=== PATIENT | male | born 1940 | race Caucasian/White ===

== ENCOUNTER 2018-02-18 11:24 | Observation (INO) ==
--- NOTE | 2018-02-18 11:43 | Emergency Department Note ---
ED Disposition Clinical Impression: Troponin level elevated, Bradycardia, Vasovagal near-syncope, Hypokalemia Disposition: Admitted as Observation Condition on Discharge: Good Additional Instructions: consult d/w Dr Emery ([facility]), admit d/w Dr Barlow - Critical Care Critical Care Time: No Attestation: On , the high probability of a clinically significant, sudden or life threatening deterioration of the following system(s) required my full and direct attention, intervention and personal management. The time I documented below is in addition to time spent performing reported procedures but includes the following listed in this critical care notation. Medical Decision Making - Medical Records Medical records reviewed: Yes: I reviewed the patient's medical records. - Albert Inquiry Pt receiving controlled substance: No Vital Signs: 02/18/18 12:02 02/18/18 12:05 Temperature 97.8 F Temperature Source Oral Pulse Rate [Left Radial] 51 L 78 Respiratory Rate 16 Blood Pressure [Right Arm] 126/90 98/52 L Blood Pressure Mean [Right Arm] 102 67 Blood Pressure Source [Right Arm] Automatic Cuff Automatic Cuff Blood Pressure Position [Right Arm] Supine Standing 02 Sat by Pulse Oximetry 97 Oxygen Delivery Method Room Air - Lab Data Lab results reviewed: Yes: I reviewed the patient's lab results. Lab Results 02/18/18 12:30: WBC 9.1, RBC 3.97 L, Hgb 11.7 L, Hct 37.4 L, MCV 94.0, MCH 29.5, MCHC 31.4 L, RDW 15.2, Plt Count 199, MPV 8.2, Neut % (Auto) 77.3, Lymph % (Auto) 16.2, Ralls % (Auto) 6.0, Eos % (Auto) 0.3, Baso % (Auto) 0.2, Neut # (Auto) 7.1, Lymph # (Auto) 1.5, Ralls # (Auto) 0.6, Eos # (Auto) 0.0, Baso # (Auto) 0.0 02/18/18 12:30: Sodium 138, Potassium 3.0 L, Chloride 103, Carbon Dioxide 26, Anion Gap 12.0, BUN 25 H, Creatinine 6.87 H, Estimated Creat Clear 8, Estimated GFR 8 L*, Est GFR ( Amer) 9 L*, Glucose 113 H, Calcium 5.9 L, Total Bili keys 0.2, AST 53 H, ALT 38, Alkaline Phosphatase 109, Troponin I 0.12 H, Total Protein 4.6 L, Albumin 1.2 L, Globulin 3.4 H, Albumin/Globulin Ratio 0.4 L 02/18/18 12:30: Lactate 1.2 02/18/18 12:30: Magnesium 1.3 L Result diagrams: 02/18/18 12:30 02/18/18 12:30 Orders (Tests/Meds): ED MEDICATIONS Generic Name Dose Route Start Last Admin Trade Name Freq PRN Reason Stop Dose Admin Acetaminophen 650 mg 02/18/18 14:21 Acetaminophen 325mg Tab PO 03/20/18 14:20 Q4HP PRN As Needed for Fever or Pain Sodium Chloride 500 mls @ 500 mls/hr 02/18/18 11:45 02/18/18 14:06 Sod Chlor 0.9% 500ml Bag IV 03/20/18 11:44 500 mls/hr .Q1H BRIAN Administration Discontinued Medications Generic Name Dose Route Start Last Admin Trade Name Freq PRN Reason Stop Dose Admin Potassium Chloride 20 meq 02/18/18 13:49 02/18/18 14:07 Klor-Con 20meq Tablet PO 02/18/18 13:50 20 meq ONCE ONE Administration ORDERS Category Date Time Status Troponin I Q3H Lab 02/18/18 17:30 Ordered Troponin I Q3H Lab 02/18/18 20:30 Ordered Urinalysis and Microscopic Stat Lab 02/18/18 11:39 Ordered 12-lead EKG Request [ECG Request by /Kristen] Stat Y 02/18/18 11:35 Ordered - ECG Data Tracing #1 I reviewed this ECG and interpreted as documented below: Arrhythmias present: sinus kristin, other (no stemi) General Adult HPI - General Stated complaint: Dizzy; passing out Time Seen by Provider: 02/18/18 11:40 - History of Present Illness HPI narrative: mild to mod dizzy today, no loc, no pain, no injury, no fever, no visual disturbance - Related Data Home Medications Medication Instructions Recorded Confirmed Finasteride [Proscar 5mg Tablet] 1 tab PO DAILY 01/04/18 02/18/18 Levothyroxine Sodium 1 tab PO DAILY 01/04/18 02/18/18 [Levothyroxine 50mcg (0.05mg) Tab] Midodrine HCl 10 mg PO TID 01/04/18 02/18/18 Tamsulosin HCl [Flomax 0.4mg 1 pack PO DAILY 01/04/18 02/18/18 capsule] Aspirin [Aspir 81] 81 mg PO DAILY 02/13/18 02/18/18 Atorvastatin Calcium [Lipitor 80mg 80 mg PO DAILY 02/13/18 02/18/18 Tablet] Fludrocortisone Acetate [Florinef 0.1 mg PO DAILY 02/13/18 02/18/18 0.1mg tablet] Loperamide HCl [Imodium 2 mg 2 mg PO DAILY PRN 02/13/18 02/18/18 capsule] Potassium Chloride [Klor-con 20 20 meq PO BID 02/13/18 02/18/18 mEq tablet] Allergies Allergy/AdvReac Type Severity Reaction Status Date / Time No Known Allergies Allergy Verified 01/04/18 16:[address] [facility] History I have reviewed the patient's past medical history: Yes Medical History: Reports:: Renal Disease (Peritoneal Dialysis) Denies:: Diabetes Mellitus Type 2 - Social History Smoking Status: Current every day smoker Tobacco Type: cigarettes Alcohol Intake: never ROS Obtained: Yes Systems reviewed as appropriate & no additional complaints - Constitutional Constitutional: Denies fever(s) - Eyes Eyes: Denies change in vision - ENT Ears, Nose, Mouth, and Throat: Reports dizziness - Cardiovascular Cardiovascular: Denies chest pain - Respiratory Respiratory: No dyspnea - Gastrointestinal Gastrointestingal: Denies: abdominal pain - Musculoskeletal Musculoskeletal: Denies back pain - Integumentary/Breasts Skin/Breast: Denies rash - Neurologic Neurologic: Reports dizziness, Denies focal weakness Physical Exam - General General appearance: alert, in no apparent distress - Head Head exam: atraumatic - Eye Eye exam: Present: PERRL, EOMI - ENT ENT exam: Present: normal oropharynx, mucous membranes moist - Neck Neck exam: Present: normal inspection - Chest Chest inspection: Present: normal inspection - Respiratory Respiratory exam: Present: normal lung sounds bilaterally - Cardiovascular Cardiovascular exam: Present: regular rate, normal rhythm - Abdominal Exam Abdominal exam: Present: soft. Absent: tenderness - Extremities Exam Extremities exam: Absent: tenderness - Neurological Exam Neurological exam: Present: alert, oriented X3, other (cn 3 to 10 grossly intact) - Psychiatric Psychiatric exam: Present: normal affect, normal mood - Skin Skin exam: Present: warm, dry
[2018-02-18 12:41] LABS: Basophils % 0.2 % (0.1-2.0); Eosinophils % 0.3 % (0.1-12.0); Hematocrit 37.4 % (42.0-52.0); Hemoglobin 11.7 g/dL (14.1-18.0); Lymphocytes # 1.5 K/mm3 (0.7-4.5); Lymphocytes % 16.2 % (10-50); Mean Corpuscular HGB Conc 31.4 g/dL (31.8-35.4); Mean Corpuscular Hemoglobin 29.5 pg (27.0-31.2); Mean Platelet Volume 8.2 fl (7.4-10.4); Monocytes # 0.6 K/mm3 (0.1-1.0); Neutrophils # 7.1 K/mm3 (1.8-7.8); Neutrophils % 77.3 % (37.0-80.0); Platelet Count 199 K/mm3 (142-424); Red Blood Count 3.97 M/mm3 (4.60-6.20); Red Cell Distribution Width 15.2 % (11.5-17.5); White Blood Count 9.1 K/mm3 (4.8-10.8)
[2018-02-18 12:56] LABS: Albumin Level 1.2 gm/dL (3.4-5.0); Albumin/Globulin Ratio 0.4 (1.1-1.8); Bilirubin,Total 0.2 mg/dL (0.2-1.0); Calcium 5.9 mg/dL (8.5-10.1); Globulin 3.4 gm/dl (1.3-3.2); Total Protein,Serum 4.6 gm/dL (6.4-8.2)
--- NOTE | 2018-02-18 14:20 | Consult Report ---
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 Carotid U/S, 01/19/18, [place], [place] showed 0-49% ICA stenosis bilaterally. Echo, 01/19/2018, [place], [place] showed LVEF 77% with RVSP of 32 mm Hg, Mild MR and Aortic valve calcification noted. Echo, 11/04/17, [place], [place], showed LVEF of 65-70% with sigmoid shaped septum, Grade II diastolic dysfunction, mild to moderate MAC with mild MR, mild aortic stenosis with peak velocity of 2.9 m/s, a mean gradient of 17 mm Hg and ELIZABETH by Continuity Equation of 1.5 cm(cm) and mild AR, RVSP 49 mm Hg EKG showed A. fib with RVR at 104 bpm. Original Note: History of Present Illness Consult date: 02/18/18 Requesting physician: Figueroa Barlow Consult reason: hypotension Chief complaint: Syncope, Hypotension, Bradycardia Additional Medical History:: 1. History of hypertension, now with episodes of hypotension for which he takes Midodrine 2. End-stage renal disease, on peritoneal dialysis since July 2017 3. Continued tobacco use, now down to 1/2 pack/day. Patient has smoked 50-60 years. 4. History of TIAs recently without residual deficits 5. History of recurrent aspiration pneumonia with hospitalization 1 month ago in both [place] in [place] and then in [facility] in [place] 6. Hyperlipidemia History of present illness: 77-year-old white male with history as noted above presented to [facility] due to complaint of dizziness and passing out. Symptoms seem to have started about the time of his dialysis starting in July of this year. Over the last couple of weeks the dizziness and passing out episodes have become more frequent. Patient relates that he has decided to switch from nephrology care at [place] in [place] to nephrology care at [facility] in [place], [place] and reportedly there is a change in his dialysate to start in the near future. Patient relates similar symptoms last week for which she received IV fluids and was discharged from the emergency department. His son relates that the patient has a cardiac murmur with a recent echocardiogram but results are unknown. Patient denies any chest pain, pressure or tightness. Patient relates that he is taking a medication to keep his heart rate and blood pressure up to try to prevent the dizziness and syncopal episodes. Initial troponin is normal. Cardiology consulted for evaluation recommendations. EKG shows marked sinus bradycardia at 49 bpm with PAC. [facility] History Medical History: Reports:: Renal Disease (Peritoneal Dialysis) Denies:: Diabetes Mellitus Type 2 - *Social History Smoking Status: Current every day smoker Tobacco Type: cigarettes Alcohol Intake: never - Psychiatric History Expresses thoughts of harming self/others: None Suicide Plan Description: No Plan Meds Home Medications Medication Instructions Recorded Confirmed Type Finasteride [Proscar 5mg Tablet] 1 tab PO DAILY 01/04/18 02/18/18 History Levothyroxine Sodium 1 tab PO DAILY 01/04/18 02/18/18 History [Levothyroxine 50mcg (0.05mg) Tab] Midodrine HCl 10 mg PO TID 01/04/18 02/18/18 History Tamsulosin HCl [Flomax 0.4mg 1 pack PO DAILY 01/04/18 02/18/18 History capsule] Aspirin [Aspir 81] 81 mg PO DAILY 02/13/18 02/18/18 History Atorvastatin Calcium [Lipitor 80mg 80 mg PO DAILY 02/13/18 02/18/18 History Tablet] Fludrocortisone Acetate [Florinef 0.1 mg PO DAILY 02/13/18 02/18/18 History 0.1mg tablet] Loperamide HCl [Imodium 2 mg 2 mg PO DAILY PRN 02/13/18 02/18/18 History capsule] Potassium Chloride [Klor-con 20 20 meq PO BID 02/13/18 02/18/18 History mEq tablet] Allergies Allergy/AdvReac Type Severity Reaction Status Date / Time No Known Allergies Allergy Verified 01/04/18 16:37 Review of Systems - *Cardiovascular Reports shortness of breath with activity, Denies chest pain, Denies leg swelling - *Respiratory Reports cough, Denies shortness of breath - *Gastrointestinal Denies abdominal pain, Denies loose stools - *Genitourinary Denies blood in semen, Denies blood in urine - *Musculoskeletal Denies back pain - *Neurologic Reports dizziness, Denies localized weakness Exam Vital signs and Labs for Last 24 Hours: Temp Pulse Resp BP Pulse Ox 97.8 F 78 16 98/52 L 97 02/18/18 12:02 02/18/18 12:05 02/18/18 12:02 02/18/18 12:05 02/18/18 12:02 Laboratory Results - last 24 hr 02/18/18 12:30: WBC 9.1, RBC 3.97 L, Hgb 11.7 L, Hct 37.4 L, MCV 94.0, MCH 29.5, MCHC 31.4 L, RDW 15.2, Plt Count 199, MPV 8.2, Neut % (Auto) 77.3, Lymph % (Auto) 16.2, Walker % (Auto) 6.0, Eos % (Auto) 0.3, Baso % (Auto) 0.2, Neut # (Auto) 7.1, Lymph # (Auto) 1.5, Walker # (Auto) 0.6, Eos # (Auto) 0.0, Baso # (Auto) 0.0 02/18/18 12:30: Sodium 138, Potassium 3.0 L, Chloride 103, Carbon Dioxide 26, Anion Gap 12.0, BUN 25 H, Creatinine 6.87 H, Estimated Creat Clear 8, Estimated GFR 8 L*, Est GFR ( Amer) 9 L*, Glucose 113 H, Calcium 5.9 L, Total Bilirubin 0.2, AST 53 H, ALT 38, Alkaline Phosphatase 109, Troponin I 0.12 H, Total Protein 4.6 L, Albumin 1.2 L, Globulin 3.4 H, Albumin/Globulin Ratio 0.4 L 02/18/18 12:30: Lactate 1.2 02/18/18 12:30: Magnesium 1.3 L I & O for Last 24 hours: Intake & Output 02/16/18 02/17/18 02/18/18 02/19/18 11:59 11:59 11:59 11:59 Weight 137 lb - *Routine Neck Exam Present: supple, carotid bruit. Absent: JVD - *Routine Respiratory Exam Present: decreased breath sounds, diminished air movement. Absent: accessory muscle use, rales, rhonchi, wheezes - *Routine Cardiovascular Exam Present: RRR, murmur. Absent: gallop, rubs - *Routine Abdominal Exam Present: soft. Absent: tenderness, distended, guarding - *Routine Extremities Exam Absent: edema, calf tenderness - *Routine Neurological Exam Present: alert, oriented X3, moving all extremities Assessment and Plan (1) Dizziness Current visit: No Status: Acute Category: Medical Code(s): R42 - Dizziness and giddiness (2) End stage chronic kidney disease Current visit: No Status: Acute Category: Medical Code(s): N18.6 - End stage renal disease (3) Heart murmur on physical examination Current visit: Yes Status: Acute Category: Medical Code(s): R01.1 - Cardiac murmur, unspecified (4) Orthostatic hypotension Current visit: No Status: Acute Category: Medical Code(s): I95.1 - Orthostatic hypotension (5) Syncope due to orthostatic hypotension Current visit: No Status: Acute Category: Medical Code(s): I95.1 - Orthostatic hypotension (6) History of recurrent TIAs Current visit: Yes Status: Acute Category: Medical Code(s): Z86.73 - Personal history of transient ischemic attack (TIA), and cerebral infarction without residual deficits (7) History of aspiration pneumonia Current visit: Yes Status: Acute Category: Medical Code(s): Z87.01 - Personal history of pneumonia (recurrent) (8) Tobacco use disorder, continuous Current visit: Yes Status: Acute Category: Medical Code(s): F17.209 - Nicotine dependence, unspecified, with unspecified nicotine-induced disorders (9) 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 We will try to obtain records from both [facility] in [place] and [facility] in [place], [place] for review prior to repeating echocardiogram. 2. Patient is receiving IV fluids and with p.o. potassium. 3. Recommend telemetry to observe for continued bradycardia and possible need for permanent pacemaker implantation.
--- NOTE | 2018-02-18 14:52 | Pharmacy Consult Notes ---
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
--- NOTE | 2018-02-18 15:34 | History & Physical Report ---
*Admission Date: 02/18/18 *Chief complaint: weakness, ? dehydration *History of present illness: 77-year-old white male with history as noted above presented to the [facility] emergency department due to complaint of dizziness and passing out. Symptoms seem to have started about the time of his dialysis starting in July of this year. Over the last couple of weeks the dizziness and passing out episodes have become more frequent. Patient relates that he has decided to switch from nephrology care at [place] in [facility] to nephrology care at [facility] in [place], [place] and reportedly there is a change in his dialysate to start in the near future. Patient relates similar symptoms last week for which she received IV fluids and was discharged from the emergency department. His son relates that the patient has a cardiac murmur with a recent echocardiogram but results are unknown. Patient denies any chest pain, pressure or tightness. Patient relates that he is taking a medication to keep his heart rate and blood pressure up to try to prevent the dizziness and syncopal episodes. Initial troponin is elevated, but at baseline from prior. Cardiology consulted by ER MD for evaluation recommendations. EKG shows marked sinus bradycardia at 49 bpm with PAC. is most concerened about possible dehydration. 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 - *Social History Smoking Status: Current every day smoker Tobacco Type: cigarettes Alcohol Intake: never - Psychiatric History Expresses thoughts of harming self/others: None Suicide Plan Description: No Plan *Family Hx:: Non-contributory Review of Systems - Review of Systems Review of systems:: pertinent systems reviewed and negative unless documented below - Constitutional Reports body ache(s), Reports fatigue, Denies fever(s), Denies headache(s) - Eyes Reports blind spots, Reports blurry vision - ENT Reports poor balance, Reports dizziness, Denies abnormal hearing - *Cardiovascular Reports leg swelling, Denies chest pain, Denies chest pain at rest, Denies leg pain with activity, Denies shortness of breath - *Respiratory Reports shortness of breath with activity, Denies change in phlegm color, Denies chest congestion, Denies shortness of breath, Denies excessive phlegm production - *Gastrointestinal Denies abdominal pain, Denies belching, Denies bloating, Denies change in bowel habits - *Genitourinary Reports difficulty urinating - *Musculoskeletal Reports abnormal walking, Reports deformity, Denies joint pain, Denies joint swelling - *Neurologic Reports dizziness, Denies localized weakness Meds Home Medications Medication Instructions Recorded Confirmed Type Finasteride [Proscar 5mg Tablet] 5 mg PO DAILY 01/04/18 02/18/18 History Levothyroxine Sodium 50 mcg PO DAILY 01/04/18 02/18/18 History [Levothyroxine 50mcg (0.05mg) Tab] Tamsulosin HCl [Flomax 0.4mg 0.8 mg PO DAILY 01/04/18 02/18/18 History capsule] Aspirin [Aspir 81] 81 mg PO DAILY 02/13/18 02/18/18 History Atorvastatin Calcium [Lipitor 80mg 80 mg PO DAILY 02/13/18 02/18/18 History Tablet] Fludrocortisone Acetate [Florinef 0.1 mg PO TID 02/13/18 02/18/18 History 0.1mg tablet] Loperamide HCl [Imodium 2 mg 2 mg PO DAILY PRN 02/13/18 02/18/18 History capsule] Potassium Chloride [Klor-con 20 40 meq PO BID 02/13/18 02/18/18 History mEq tablet] Midodrine HCl 20 mg PO TID 02/18/18 02/18/18 History Omeprazole [Omeprazole 20mg 20 mg PO DAILY 02/18/18 02/18/18 History Capsule] Sodium Chloride 1 gm PO BID 02/18/18 02/18/18 History Allergies Allergy/AdvReac Type Severity Reaction Status Date / Time No Known Allergies Allergy Verified 01/04/18 16:37 Exam Vital signs and Labs for Last 24 Hours: Temp Pulse Resp BP Pulse Ox 98 F 60 20 126/62 97 02/18/18 15:06 02/18/18 15:06 02/18/18 15:06 02/18/18 15:06 02/18/18 15:04 Laboratory Results - last 24 hr 02/18/18 12:30: WBC 9.1, RBC 3.97 L, Hgb 11.7 L, Hct 37.4 L, MCV 94.0, MCH 29.5, MCHC 31.4 L, RDW 15.2, Plt Count 199, MPV 8.2, Neut % (Auto) 77.3, Lymph % (Auto) 16.2, [place] % (Auto) 6.0, Eos % (Auto) 0.3, Baso % (Auto) 0.2, Neut # (Auto) 7.1, Lymph # (Auto) 1.5, [place] # (Auto) 0.6, Eos # (Auto) 0.0, Baso # (Auto) 0.0 02/18/18 12:30: Sodium 138, Potassium 3.0 L, Chloride 103, Carbon Dioxide 26, Anion Gap 12.0, BUN 25 H, Creatinine 6.87 H, Estimated Creat Clear 8, Estimated GFR 8 L*, Est GFR ( Amer) 9 L*, Glucose 113 H, Calcium 5.9 L, Total Bilirubin 0.2, AST 53 H, ALT 38, Alkaline Phosphatase 109, Troponin I 0.12 H, Total Protein 4.6 L, Albumin 1.2 L, Globulin 3.4 H, Albumin/Globulin Ratio 0.4 L 02/18/18 12:30: Lactate 1.2 02/18/18 12:30: Magnesium 1.3 L I & O for Last 24 hours: Intake & Output 02/16/18 02/17/18 02/18/18 02/19/18 11:59 11:59 11:59 11:59 Weight 137 lb - Constitutional no acute distress, cooperative - *Routine HEENT Exam Head: Present: normocephalic, atraumatic Eye: Present: EOMI, PERRL. Absent: scleral injection ENT: Present: mucous membranes dry, oropharynx clear - *Routine Neck Exam Present: supple. Absent: JVD, lymphadenopathy - *Routine Respiratory Exam Present: rhonchi (in both bases). Absent: accessory muscle use, decreased breath sounds - *Routine Cardiovascular Exam Present: RRR, Normal S1, murmur, bradycardia - *Routine Abdominal Exam Present: soft Comments: Dialysis catheter noted. Soft abdomen. Assessment and Plan (1) Dizziness Current visit: No Status: Acute Category: Medical Code(s): R42 - Dizziness and giddiness (2) End stage chronic kidney disease Current visit: No Status: Acute Category: Medical Code(s): N18.6 - End stage renal disease (3) Heart murmur on physical examination Current visit: Yes Status: Acute Category: Medical Code(s): R01.1 - Cardiac murmur, unspecified (4) Orthostatic hypotension Current visit: No Status: Acute Category: Medical Code(s): I95.1 - Orthostatic hypotension (5) Syncope due to orthostatic hypotension Current visit: No Status: Acute Category: Medical Code(s): I95.1 - Orthostatic hypotension (6) History of recurrent TIAs Current visit: Yes Status: Acute Category: Medical Code(s): Z86.73 - Personal history of transient ischemic attack (TIA), and cerebral infarction without residual deficits (7) History of aspiration pneumonia Current visit: Yes Status: Acute Category: Medical Code(s): Z87.01 - Personal history of pneumonia (recurrent) (8) Tobacco use disorder, continuous Current visit: Yes Status: Acute Category: Medical Code(s): F17.209 - Nicotine dependence, unspecified, with unspecified nicotine-induced disorders (9) 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 F/u closely
[2018-02-19 04:18] LABS: Appearance,Urine CLEAR (Clear); Bilirubin,Urine Negative (Negative); Blood, Urine 2+ (Negative); Color,Urine YELLOW (Yellow); Glucose,Urine (UA) Negative (Negative); Ketones,Urine Negative (Negative); Leukocyte Esterase,Urine 2+ (Negative); Microscopic, Urine URINE MICROSCOPIC (MICROSCOPIC); PH,Urine 5.5 (5.0-8.5); Protein,Urine 1+ (Negative); Specific Gravity, Urine 1.025 (1.005-1.030); Urobilinogen,Urine 0.2 EU/dl (0.2)
[2018-02-19 04:25] LABS: Bacteria,Urine 2+ /lpf; WBC,Urine 20-50 #/hpf (0-3)
[2018-02-19 05:59] LABS: Basophils % 0.2 % (0.1-2.0); Eosinophils % 0.4 % (0.1-12.0); Hematocrit 33.8 % (42.0-52.0); Lymphocytes # 1.6 K/mm3 (0.7-4.5); Lymphocytes % 20.2 % (10-50); Mean Corpuscular HGB Conc 30.6 g/dL (31.8-35.4); Mean Corpuscular Hemoglobin 29.2 pg (27.0-31.2); Mean Corpuscular Volume 95.2 fl (80-94); Mean Platelet Volume 7.9 fl (7.4-10.4); Monocytes # 0.5 K/mm3 (0.1-1.0); Monocytes % 6.7 % (1.7-9.3); Neutrophils # 5.6 K/mm3 (1.8-7.8); Neutrophils % 72.5 % (37.0-80.0); Platelet Count 151 K/mm3 (142-424); Red Blood Count 3.55 M/mm3 (4.60-6.20); Red Cell Distribution Width 15.3 % (11.5-17.5); White Blood Count 7.7 K/mm3 (4.8-10.8)
[2018-02-19 06:09] LABS: Anion Gap 11.4 mEq/L (5-15); Hemoglobin 10.5 g/dL (14.1-18.0); Potassium 3.4 mmoL/L (3.5-5.1)
[2018-02-19 06:11] LABS: Calcium 5.8 mg/dL (8.5-10.1)
[2018-02-19 09:11] LABS: Free Thyroxine Index 1.2 ug/dL (5.93-13.13); T4 (Thyroxine) 3.1 ug/dl (4.7-13.3); Thyroid Stimulating Hormone 6.69 uIU/ml (0.358-3.740)
--- NOTE | 2018-02-19 11:28 | Progress Note ---
Subjective Date: 02/19/18 Time: 11:25 Principal diagnosis: Hypotension, bradycardia Interval history: 77-year-old white male in bed in no acute distress. is present in the room. Patient states he feels much better than when he came in yesterday. He ate cheeseburger and fries last evening and did not have dialysis last night. Exam Vital signs and Labs for Last 24 Hours: Temp Pulse Resp BP Pulse Ox 97.8 F 64 17 116/73 99 02/19/18 11:23 02/19/18 11:23 02/19/18 11:23 02/19/18 11:23 02/19/18 11:23 Laboratory Results - last 24 hr 02/18/18 12:30: WBC 9.1, RBC 3.97 L, Hgb 11.7 L, Hct 37.4 L, MCV 94.0, MCH 29.5, MCHC 31.4 L, RDW 15.2, Plt Count 199, MPV 8.2, Neut % (Auto) 77.3, Lymph % (Auto) 16.2, [place] % (Auto) 6.0, Eos % (Auto) 0.3, Baso % (Auto) 0.2, Neut # (Auto) 7.1, Lymph # (Auto) 1.5, [place] # (Auto) 0.6, Eos # (Auto) 0.0, Baso # (Auto) 0.0 02/18/18 12:30: Sodium 138, Potassium 3.0 L, Chloride 103, Carbon Dioxide 26, Anion Gap 12.0, BUN 25 H, Creatinine 6.87 H, Estimated Creat Clear 8, Estimated GFR 8 L*, Est GFR ( Amer) 9 L*, Glucose 113 H, Calcium 5.9 L, Total Bilirubin 0.2, AST 53 H, ALT 38, Alkaline Phosphatase 109, Troponin I 0.12 H, Total Protein 4.6 L, Albumin 1.2 L, Globulin 3.4 H, Albumin/Globulin Ratio 0.4 L 02/18/18 12:30: Lactate 1.2 02/18/18 12:30: Magnesium 1.3 L 02/18/18 17:50: Troponin I 0.12 H 02/18/18 21:01: Troponin I 0.12 H 02/19/18 04:12: Urine Color Yellow, Urine Appearance Clear, Urine pH 5.5, Ur Specific [place] 1.025, Urine Protein 1+, Urine Glucose (UA) Negative, Urine Ketones Negative, Urine Blood 2+, Urine Nitrate Negative, Urine Bilirubin Negative, Urine Urobilinogen 0.2, Ur Leukocyte Esterase 2+ A, Urine RBC 5-10, Urine WBC 20-50, Ur Squamous Epith Cells 3-5, Urine Bacteria 2+ 02/19/18 05:16: WBC 7.7, RBC 3.55 L, Hgb 10.5 L D, Hct 33.8 L, MCV 95.2 H, MCH 29.2, MCHC 30.6 L, RDW 15.3, Plt Count 151, MPV 7.9, Neut % (Auto) 72.5, Lymph % (Auto) 20.2, [place] % (Auto) 6.7, Eos % (Auto) 0.4, Baso % (Auto) 0.2, Neut # (Auto) 5.6, Lymph # (Auto) 1.6, [place] # (Auto) 0.5, Eos # (Auto) 0.0, Baso # (Auto) 0.0 02/19/18 05:16: Sodium 140, Potassium 3.4 L, Chloride 107, Carbon Dioxide 25, Anion Gap 11.4, BUN 27 H, Creatinine 7.14 H, Estimated Creat Clear 8, Estimated GFR 7 L*, Est GFR ( Amer) 9 L*, Glucose 106, Calcium 5.8 L 02/19/18 05:16: Magnesium 1.6 D 02/19/18 05:16: TSH 6.69 H, Free T4 Index 1.2 L, Thyroxine (T4) 3.1 L, T3 Uptake 40 H I & O for Last 24 hours: Intake & Output 02/16/18 02/17/18 02/18/18 02/19/18 11:59 11:59 11:59 11:59 Intake Total 1080 / 1080 Output Total 300 / 300 Balance 780 / 780 Weight 142 lb - *Routine Neck Exam Present: supple. Absent: JVD, carotid bruit - *Routine Respiratory Exam Present: CTA bilaterally. Absent: accessory muscle use, rales, rhonchi, wheezes - *Routine Cardiovascular Exam Present: RRR. Absent: murmur, gallop, rubs - *Routine Abdominal Exam Present: soft. Absent: tenderness, distended, guarding Comments: Peritoneal dialysis catheter noted in the abdomen. - *Routine Extremities Exam Absent: edema, calf tenderness - *Routine Neurological Exam Present: alert, oriented X3, moving all extremities Progress Note: A&P (1) Dizziness Status: Acute Current Visit: No (2) End stage chronic kidney disease Status: Acute Current Visit: No (3) Heart murmur on physical examination Status: Acute Current Visit: Yes (4) Orthostatic hypotension Status: Acute Current Visit: No (5) Syncope due to orthostatic hypotension Status: Acute Current Visit: No (6) History of recurrent TIAs Status: Acute Current Visit: Yes (7) History of aspiration pneumonia Status: Acute Current Visit: Yes (8) Tobacco use disorder, continuous Status: Acute Current Visit: Yes (9) Anemia due to end stage renal disease Status: Acute Current Visit: Yes (10) Hypomagnesemia Status: Acute Current Visit: Yes (11) Hypokalemia Status: Acute Current Visit: Yes Assessment and Plan for All Diagnoses:: Patient's dizziness and near syncope likely related to orthostatic hypotension from peritoneal dialysis. With placement of fluids and increase in salt intake symptoms have resolved patient does feel better. Telemetry has revealed sinus rhythm in the 50s and 60s overnight with no further marked bradycardia and no episodes of atrial fibrillation. Would not recommend permanent pacemaker insertion at this time. Discussion with Dr. Maya this morning, he is planning to try to get patient into nephrology for further evaluation this week. C ontinue replace potassium and magnesium as indicated. Patient's elevated troponin is likely related to poor clearing from renal status. Thyroid functions show evidence of hypothyroidism, will defer to Francesco for further treatment. No further cardiac workup at this time, we will see as needed.
--- NOTE | 2018-02-19 15:06 | Discharge Summary ---
General - General Admission date:: 02/18/18 Discharge date: 02/19/18 HPI HPI: 77-year-old white male with history as noted above presented to the [facility] emergency department due to complaint of dizziness and passing out. Symptoms seem to have started about the time of his dialysis starting in July of this year. Over the last couple of weeks the dizziness and passing out episodes have become more frequent. Patient relates that he has decided to switch from nephrology care at [facility] in [facility] to nephrology care at [facility] in [place], [place] and reportedly there is a change in his dialysate to start in the near future. Patient relates similar symptoms last week for which she received IV fluids and was discharged from the emergency department. His son relates that the patient has a cardiac murmur with a recent echocardiogram but results are unknown. Patient denies any chest pain, pressure or tightness. Patient relates that he is taking a medication to keep his heart rate and blood pressure up to try to prevent the dizziness and syncopal episodes. Initial troponin is elevated, but at baseline from prior. Cardiology consulted by ER MD for evaluation recommendations. EKG shows marked sinus bradycardia at 49 bpm with PAC. is most concerened about possible dehydration. Hospital Course Hospital Course: Mr. Parrish was admitted to Medicine for management of his hypotension and presyncope. Initially suspected to be due to cardiac etiology due to elevated troponins and bradycardia. Cards was consulted and assessed as follows: "Patient's dizziness and near syncope likely related to orthostatic hypotension from peritoneal dialysis. With placement of fluids and increase in salt intake symptoms have resolved patient does feel better. Telemetry has revealed sinus rhythm in the 50s and 60s overnight with no further marked bradycardia and no episodes of atrial fibrillation. Would not recommend permanent pacemaker insertion at this time. Discussion with Dr. Maya this morning, he is planning to try to get patient into nephrology for further evaluation this week. Continue replace potassium and magnesium as indicated. Patient's elevated troponin is likely related to poor clearing from renal status. No further cardiac workup at this time, we will see as needed." Review of Hx established the followin. History of hypertension, now with episodes of hypotension for which he takes Midodrine 2. End-stage renal disease, on peritoneal dialysis since July 2017 3. Continued tobacco use, now down to 1/2 pack/day. Patient has smoked 50-60 years. 4. History of TIAs recently without residual deficits 5. History of recurrent aspiration pneumonia with hospitalization 1 month ago in both [facility] in [facility] and then in [facility] in [place] 6. 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 Carotid U/S, 01/19/18, [place], [place] showed 0-49% ICA stenosis bilaterally. Echo, 01/19/2018, [place], [place] showed LVEF 77% with RVSP of 32 mm Hg, Mild MR and Aortic valve calcification noted. Echo, 11/04/17, [place], [place], showed LVEF of 65-70% with sigmoid shaped septum, Grade II diastolic dysfunction, mild to moderate MAC with mild MR, mild aortic stenosis with peak velocity of 2.9 m/s, a mean gradient of 17 mm Hg and ELIZABETH by Continuity Equation of 1.5 cm(cm) and mild AR, RVSP 49 mm Hg EKG showed A. fib with RVR at 104 bpm. Determination was made that patient's issued were from dialysis causing fluid, electrolyte imbalances. Due to no Nephrology service at [facility] and inability to provide PD services, patient needs to be transferred to a more capable facility. Family wishes to be transferred to as this is where their new vehicle and equipment cleaner is located. Contacted Hospitalist underground conduit installer and they accepted for transfer pending bed opening. Will continue to manage fluid and electrolyte imbalances as best as possible while at [facility]. Objective Vital signs: Temp Pulse Resp BP Pulse Ox 97.8 F 60 17 116/73 99 02/19/18 11:23 02/19/18 12:00 02/19/18 11:23 02/19/18 11:23 02/19/18 11:23 Narrative: - *Routine Neck Exam Present: supple. Absent: JVD, carotid bruit - *Routine Respiratory Exam Present: CTA bilaterally. Absent: accessory muscle use, rales, rhonchi, wheezes - *Routine Cardiovascular Exam Present: RRR. Absent: murmur, gallop, rubs - *Routine Abdominal Exam Present: soft. Absent: tenderness, distended, guarding Comments: Peritoneal dialysis catheter noted in the abdomen. - *Routine Extremities Exam Absent: edema, calf tenderness - *Routine Neurological Exam Present: alert, oriented X3, moving all extremities Results Labs on day of discharge: Labs from last 24 hours 02/19/18 02/19/18 02/19/18 05:16 05:16 05:16 WBC RBC Hgb Hct MCV MCH MCHC RDW Plt Count MPV Neut % (Auto) Lymph % (Auto) [place] % (Auto) Eos % (Auto) Baso % (Auto) Neut # (Auto) Lymph # (Auto) [place] # (Auto) Eos # (Auto) Baso # (Auto) Sodium 140 Potassium 3.4 L Chloride 107 Carbon Dioxide 25 Anion Gap 11.4 BUN 27 H Creatinine 7.14 H Estimated Creat Clear 8 Estimated GFR 7 L* Est GFR ( Amer) 9 L* Glucose 106 Calcium 5.8 L Magnesium 1.6 D Troponin I TSH 6.69 H Free T4 Index 1.2 L Thyroxine (T4) 3.1 L T3 Uptake 40 H Urine Color Urine Appearance Urine pH Ur Specific [place] Urine Protein Urine Glucose (UA) Urine Ketones Urine Blood Urine Nitrate Urine Bilirubin Urine Urobilinogen Ur Leukocyte Esterase Urine RBC Urine WBC Ur Squamous Epith Cells Urine Bacteria 02/19/18 02/19/18 02/18/18 05:16 04:12 21:01 WBC 7.7 RBC 3.55 L Hgb 10.5 L D Hct 33.8 L MCV 95.2 H MCH 29.2 MCHC 30.6 L RDW 15.3 Plt Count 151 MPV 7.9 Neut % (Auto) 72.5 Lymph % (Auto) 20.2 [place] % (Auto) 6.7 Eos % (Auto) 0.4 Baso % (Auto) 0.2 Neut # (Auto) 5.6 Lymph # (Auto) 1.6 [place] # (Auto) 0.5 Eos # (Auto) 0.0 Baso # (Auto) 0.0 Sodium Potassium Chloride Carbon Dioxide Anion Gap BUN Creatinine Estimated Creat Clear Estimated GFR Est GFR ( Amer) Glucose Calcium Magnesium Troponin I 0.12 H TSH Free T4 Index Thyroxine (T4) T3 Uptake Urine Color Yellow Urine Appearance Clear Urine pH 5.5 Ur Specific [place] 1.025 Urine Protein 1+ Urine Glucose (UA) Negative Urine Ketones Negative Urine Blood 2+ Urine Nitrate Negative Urine Bilirubin Negative Urine Urobilinogen 0.2 Ur Leukocyte Esterase 2+ A Urine RBC 5-10 Urine WBC 20-50 Ur Squamous Epith Cells 3-5 Urine Bacteria 2+ 02/18/18 17:50 WBC RBC Hgb Hct MCV MCH MCHC RDW Plt Count MPV Neut % (Auto) Lymph % (Auto) [place] % (Auto) Eos % (Auto) Baso % (Auto) Neut # (Auto) Lymph # (Auto) [place] # (Auto) Eos # (Auto) Baso # (Auto) Sodium Potassium Chloride Carbon Dioxide Anion Gap BUN Creatinine Estimated Creat Clear Estimated GFR Est GFR ( Amer) Glucose Calcium Magnesium Troponin I 0.12 H TSH Free T4 Index Thyroxine (T4) T3 Uptake Urine Color Urine Appearance Urine pH Ur Specific [place] Urine Protein Urine Glucose (UA) Urine Ketones Urine Blood Urine Nitrate Urine Bilirubin Urine Urobilinogen Ur Leukocyte Esterase Urine RBC Urine WBC Ur Squamous Epith Cells Urine Bacteria DS: Diagnosis - Discharge Diagnosis (1) Dizziness Status: Acute (2) End stage chronic kidney disease Status: Acute (3) Heart murmur on physical examination Status: Acute (4) Orthostatic hypotension Status: Acute (5) Syncope due to orthostatic hypotension Status: Acute (6) History of recurrent TIAs Status: Acute (7) History of aspiration pneumonia Status: Acute (8) Tobacco use disorder, continuous Status: Acute (9) Anemia due to end stage renal disease Status: Acute (10) Hypomagnesemia Status: Acute (11) Hypokalemia Status: Acute Discharge Plan - Patient Discharge Instructions ACTIVITY: Limited activity DIET: low salt diet Patient Instructions: DI for Hypokalemia, DI for Bradycardia - Follow up Plan Disposition: Xfer Short-Term Hosp Home Medications: Home Medications Medication Instructions Recorded Confirmed Type Finasteride [Proscar 5mg Tablet] 5 mg PO DAILY 01/04/18 02/18/18 History Levothyroxine Sodium 50 mcg PO DAILY 01/04/18 02/18/18 History [Levothyroxine 50mcg (0.05mg) Tab] Tamsulosin HCl [Flomax 0.4mg 0.8 mg PO HS 01/04/18 02/18/18 History capsule] Aspirin [Aspir 81] 81 mg PO TID 02/13/18 02/18/18 History Atorvastatin Calcium [Lipitor 80mg 80 mg PO HS 02/13/18 02/18/18 History Tablet] Fludrocortisone Acetate [Florinef 0.1 mg PO TID 02/13/18 02/18/18 History 0.1mg tablet] Loperamide HCl [Imodium 2 mg 2 mg PO DAILY PRN 02/13/18 02/18/18 History capsule] Potassium Chloride [Klor-con 20 40 meq PO BID 02/13/18 02/18/18 History mEq tablet] Midodrine HCl 20 mg PO TID 02/18/18 02/18/18 History Miscellaneous [Unknown Home 1 each PO DAILY 02/18/18 02/18/18 History Medication] Omeprazole [Omeprazole 20mg 20 mg PO DAILY 02/18/18 02/18/18 History Capsule] Ondansetron [Zofran 4mg ODT] 4 mg PO DAILYP PRN 02/18/18 02/18/18 History Sodium Chloride 1 gm PO BID 02/18/18 02/18/18 History Prescriptions/Medication Reconciliation: No Action Tamsulosin HCl [Flomax 0.4mg capsule] 0.8 mg PO HS Levothyroxine Sodium [Levothyroxine 50mcg (0.05mg) Tab] 50 mcg PO DAILY Finasteride [Proscar 5mg Tablet] 5 mg PO DAILY Loperamide HCl [Imodium 2 mg capsule] 2 mg PO DAILY PRN PRN Reason: Diarrhea Fludrocortisone Acetate [Florinef 0.1mg tablet] 0.1 mg PO TID Aspirin [Aspir 81] 81 mg PO TID Omeprazole [Omeprazole 20mg Capsule] 20 mg PO DAILY Midodrine HCl 20 mg PO TID Sodium Chloride 1 gm PO BID Miscellaneous [Unknown Home Medication] 1 each PO DAILY Ondansetron [Zofran 4mg ODT] 4 mg PO DAILYP PRN PRN Reason: Nausea Potassium Chloride [Klor-con 20 mEq tablet] 40 meq PO BID Atorvastatin Calcium [Lipitor 80mg Tablet] 80 mg PO HS
[2018-02-20 07:45] LABS: Albumin Level 1.1 gm/dL (3.4-5.0); Albumin/Globulin Ratio 0.4 (1.1-1.8); Anion Gap 20.4 mEq/L (5-15); Bilirubin,Total 0.3 mg/dL (0.2-1.0); Globulin 2.9 gm/dl (1.3-3.2); Phosphorous 5.4 mg/dL (2.4-4.9); Potassium 4.4 mmoL/L (3.5-5.1)
[2018-02-20 07:47] LABS: Calcium 5.9 mg/dL (8.5-10.1)
--- NOTE | 2018-02-20 07:58 | Progress Note ---
Internal Medicine - PN: Subj *Date: 02/20/18 *Time: 07:58 Interval history: Patient in the restroom. His reports no complaints. Essentially unchanged. We are awaiting bed availability for patient to be transferred to [facility] today. Exam Vital signs and Labs for Last 24 Hours: Temp Pulse Resp BP Pulse Ox 97.8 F 60 18 119/68 96 02/20/18 03:56 02/20/18 04:00 02/20/18 03:56 02/20/18 03:56 02/20/18 03:56 Laboratory Results - last 24 hr 02/19/18 05:16: Magnesium 1.6 D 02/19/18 05:16: TSH 6.69 H, Free T4 Index 1.2 L, Thyroxine (T4) 3.1 L, T3 Uptake 40 H 02/20/18 07:00: Sodium 144, Potassium 4.4 D, Chloride 111 H, Carbon Dioxide 17 L D, Anion Gap 20.4 H, BUN 30 H, Creatinine 7.39 H, Estimated Creat Clear 8, Estimated GFR 7 L*, Est GFR ( Amer) 9 L*, Glucose 72 L, Calcium 5.9 L, Phosphorus 5.4 H, Magnesium 1.6, Total Bilirubin 0.3, AST 45 H, ALT 35, Alkaline Phosphatase 100, Total Protein 4.0 L, Albumin 1.1 L, Globulin 2.9, Albumin/Globulin Ratio 0.4 L I & O for Last 24 hours: Intake & Output 02/17/18 02/18/18 02/19/18 02/20/18 11:59 11:59 11:59 11:59 Intake Total 1080 / 1080 Output Total 300 / 300 315 / 315 Balance 780 / 780 -315 / -315 Weight 142 lb 141 lb 1 oz Microbiology Reports for the Last 24 Hours: Microbiology 02/19/18 04:12 Urine,Clean Catch Urine Culture - Final Multiple organisms, suggests contamination. Assessment and Plan (1) Dizziness Current visit: No Status: Acute Category: Medical Code(s): R42 - Dizziness and giddiness (2) End stage chronic kidney disease Current visit: No Status: Acute Category: Medical Code(s): N18.6 - End stage renal disease (3) Heart murmur on physical examination Current visit: Yes Status: Acute Category: Medical Code(s): R01.1 - Cardiac murmur, unspecified (4) Orthostatic hypotension Current visit: No Status: Acute Category: Medical Code(s): I95.1 - Orthostatic hypotension (5) Syncope due to orthostatic hypotension Current visit: No Status: Acute Category: Medical Code(s): I95.1 - Orthostatic hypotension (6) History of recurrent TIAs Current visit: Yes Status: Acute Category: Medical Code(s): Z86.73 - Personal history of transient ischemic attack (TIA), and cerebral infarction without residual deficits (7) History of aspiration pneumonia Current visit: Yes Status: Acute Category: Medical Code(s): Z87.01 - Personal history of pneumonia (recurrent) (8) Tobacco use disorder, continuous Current visit: Yes Status: Acute Category: Medical Code(s): F17.209 - Nicotine dependence, unspecified, with unspecified nicotine-induced disorders (9) Anemia due to end stage renal disease Current visit: Yes Status: Acute Category: Medical Code(s): N18.6 - End stage renal disease; D63.1 - Anemia in chronic kidney disease (10) Hypomagnesemia Current visit: Yes Status: Acute Category: Medical Code(s): E83.42 - Hypomagnesemia (11) Hypokalemia Current visit: Yes Status: Acute Category: Medical Code(s): E87.6 - Hypokalemia
--- NOTE | 2018-02-20 10:56 | Progress Note ---
Subjective Date: 02/20/18 Time: 10:53 Principal diagnosis: Hypotension, bradycardia Interval history: 77-year-old white male in bed in no distress. Denies chest pain. Telemetry reviewed and shows sinus bradycardia with brief nonsustained episodes of ventricular tachycardia lasting up to 5 beats for 2 separate episodes. These occurred at about 2:00 and about 4:00 this morning. No recurrence since then. Patient does relate return of diarrhea which he has had since dialysis started earlier this year. He was using Imodium right ear to help control this but reportedly was instructed by his family doctor to discontinue this about 2-3 weeks ago. Exam Vital signs and Labs for Last 24 Hours: Temp Pulse Resp BP Pulse Ox 97.6 F 66 18 106/73 L 100 02/20/18 08:00 02/20/18 08:00 02/20/18 08:00 02/20/18 08:00 02/20/18 08:00 Laboratory Results - last 24 hr 02/20/18 07:00: Sodium 144, Potassium 4.4 D, Chloride 111 H, Carbon Dioxide 17 L D, Anion Gap 20.4 H, BUN 30 H, Creatinine 7.39 H, Estimated Creat Clear 8, Estimated GFR 7 L*, Est GFR ( Amer) 9 L*, Glucose 72 L, Calcium 5.9 L, Phosphorus 5.4 H, Magnesium 1.6, Total Bilirubin 0.3, AST 45 H, ALT 35, Alkaline Phosphatase 100, Total Protein 4.0 L, Albumin 1.1 L, Globulin 2.9, Albumin/Globulin Ratio 0.4 L I & O for Last 24 hours: Intake & Output 02/17/18 02/18/18 02/19/18 02/20/18 11:59 11:59 11:59 11:59 Intake Total 1080 / 1080 360 / 360 Output Total 300 / 300 315 / 315 Balance 780 / 780 45 / 45 Weight 142 lb 141 lb 1 oz Microbiology Reports for the Last 24 Hours: Microbiology 02/19/18 04:12 Urine,Clean Catch Urine Culture - Final Multiple organisms, suggests contamination. - *Routine Respiratory Exam Present: CTA bilaterally. Absent: accessory muscle use, rales, rhonchi, wheezes - *Routine Cardiovascular Exam Present: RRR, bradycardia. Absent: murmur, gallop, rubs Progress Note: A&P (1) Dizziness Status: Acute (2) End stage chronic kidney disease Status: Acute (3) Heart murmur on physical examination Status: Acute (4) Orthostatic hypotension Status: Acute (5) Syncope due to orthostatic hypotension Status: Acute (6) History of recurrent TIAs Status: Acute (7) History of aspiration pneumonia Status: Acute (8) Tobacco use disorder, continuous Status: Acute (9) Anemia due to end stage renal disease Status: Acute (10) Hypomagnesemia Status: Acute (11) Hypokalemia Status: Acute Assessment and Plan for All Diagnoses:: Continue to monitor on telemetry. Still do not see immediate need for permanent pacemaker at this time. Awaiting transfer to [facility] treatment of diarrhea to PCP
== END 2018-02-20 16:51 | disposition short-term general hospital (02) ==
LOC: 2ND 11:24 → ER 11:24 → 2ND 15:08
PROVIDERS: ADMIT Internal Medicine Adolescent Medicine; ATTEND Internal Medicine Adolescent Medicine